=== PATIENT | female | born 1975 | race Caucasian/White ===

== ENCOUNTER 2020-09-26 14:49 | Outpatient (CLI) | payer OTHER, SELFPAY ==
[2020-09-26 16:30] LABS: SARS-CoV-2 RNA PCR Positive (Negative)
== END 2020-09-26 14:50 | disposition home or self-care (01) ==
LOC: CHSLAB 14:51
PROVIDERS: PCP Internal Medicine; Visit Provider Internal Medicine
DX: U07.1 COVID-19 (principal)
CPT/HCPCS: C9803; U0003; U0005

== ENCOUNTER 2020-09-27 09:04 | Outpatient (CLI) | payer OTHER, SELFPAY ==
[2020-09-27 09:43] LABS: Appearance Urine Clear (Clear); Basophils Absolute Auto 0.03 K/mm3 (0.00-0.10); Basophils Percent Auto 0.4 % (0.0-1.0); Bilirubin Urine Negative (Negative); Color Urine Yellow (Yellow); Eosinophils Absolute Auto 0.08 K/mm3 (0.02-0.50); Eosinophils Percent Auto 1.2 % (1.0-6.0); Glucose Urine UA Negative (Negative); Hematocrit 41.1 % (35.0-49.0); Hemoglobin 13.5 g/dL (12.0-15.0); Immature Granulocyte Absolute 0.01 K/mm3 (0.00-0.00); Immature Granulocyte Percent A 0.1 % (0.0-0.0); Ketones Urine Negative (Negative); Leukocyte Esterase Ur Negative LEU/UL (Negative); Lymphocytes Absolute Auto 2.82 K/mm3 (1.10-4.50); Lymphocytes Percent Auto 41.8 % (18.0-42.0); Mean Corpuscular HGB Conc 32.8 g/dL (32.0-36.0); Mean Corpuscular Hemoglobin 32.3 pg (27.0-31.0); Mean Corpuscular Volume 98.3 fL (78.0-102.0); Mean Platelet Volume 9.4 fl (9.2-11.8); Monocytes Absolute Auto 0.31 K/mm3 (0.10-0.90); Monocytes Percent Auto 4.6 % (2.0-11.0); Neutrophils Absolute Auto 3.5 K/mm3 (1.7-7.2); Neutrophils Percent Auto 51.9 % (50.0-70.0); Nitrate Urine Negative (Negative); Platelet Count Result 355 K/mm3 (150-420); Protein Urine Negative (Negative); Red Blood Count 4.18 M/mm3 (4.20-5.40); Red Cell Distribution Width 11.8 % (11.6-14.4); Specific Grav Ur <= 1.005 (1.010-1.020); Urobilinogen Urine 0.2 mg/dL (0.2-1.0); White Blood Count 6.7 K/mm3 (4.8-10.8); pH Urine 5.5 (5.0-8.0)
[2020-09-27 09:53] LABS: Add Urine Microscopic? YES; Blood Urine Trace-Intact (Negative); RBC Urine 0-2 /hpf (0-2); WBC Urine None seen /hpf (0-3)
[2020-09-27 09:54] LABS: Bacteria Urine Trace /hpf; Squamous Epithelial Cell Urine Rare /hpf (Few)
[2020-09-27 10:36] LABS: Alanine Aminotransferase 29 U/L (14-59); Albumin Level 4.1 g/dL (3.4-5.0); Alkaline Phosphatase 65 U/L (46-116); Anion Gap 9 mmol/L (8-16); Aspartate Amino Transferase 19 U/L (15-37); Bilirubin,Total 0.3 mg/dL (0.00-1.00); Blood Urea Nitrogen 12 mg/dL (7-18); Calcium 9.7 mg/dL (8.5-10.1); Carbon Dioxide 28 mmol/L (21-32); Chloride 102 mmol/L (98-108); Estimated Glomerular Filt Rate > 60; Glucose 82 mg/dL (70-99); Osmolality Calculated 286 mOsm/kg (285-295); Potassium 4.1 mmol/L (3.5-5.1); Sodium 139 mmol/L (136-145); Thyroid Stimulating Hormone 1.11 uIU/mL (0.36-3.74); Total Protein 7.7 g/dL (6.4-8.2)
== END 2020-09-27 09:05 | disposition home or self-care (01) ==
PROVIDERS: PCP Internal Medicine; Visit Provider Internal Medicine
DX: Z86.16 Personal history of COVID-19 (principal)
CPT/HCPCS: 36415; 80053; 81001; 84443; 85025; 86769

== ENCOUNTER 2020-10-03 08:11 | Outpatient (CLI) | payer OTHER, SELFPAY ==
[2020-10-03 09:42] LABS: SARS-CoV-2 RNA PCR Negative (Negative)
== END 2020-10-03 08:12 | disposition home or self-care (01) ==
LOC: CHSLAB 08:14
PROVIDERS: PCP Internal Medicine; Visit Provider Internal Medicine
DX: Z20.822 Contact with and (suspected) exposure to COVID-19 (principal)
CPT/HCPCS: C9803; U0003; U0005

== ENCOUNTER 2020-10-14 08:44 | Outpatient (CLI) | payer OTHER, SELFPAY ==
[2020-10-14 09:02] LABS: Appearance Urine Clear (Clear); Bilirubin Urine Negative (Negative); Blood Urine 2+ (Negative); Glucose Urine UA Negative (Negative); Ketones Urine Trace (Negative); Leukocyte Esterase Ur Negative (Negative); Nitrate Urine Negative (Negative); Protein Urine Negative (Negative); Specific Grav Ur >= 1.030 (1.010-1.020); Urobilinogen Urine 0.2 mg/dL (0.2-1.0)
[2020-10-14 09:14] LABS: Basophils Absolute Auto 0.02 K/mm3 (0.00-0.10); Basophils Percent Auto 0.4 % (0.0-1.0); Eosinophils Percent Auto 1.9 % (1.0-6.0); Hematocrit 37.6 % (35.0-49.0); Hemoglobin 12.4 g/dL (12.0-15.0); Immature Granulocyte Absolute 0.02 K/mm3 (0.00-0.00); Immature Granulocyte Percent A 0.4 % (0.0-0.0); Lymphocytes Absolute Auto 1.85 K/mm3 (1.10-4.50); Lymphocytes Percent Auto 35.9 % (18.0-42.0); Mean Corpuscular Hemoglobin 32.1 pg (27.0-31.0); Mean Corpuscular Volume 97.4 fL (78.0-102.0); Mean Platelet Volume 9.7 fl (9.2-11.8); Monocytes Absolute Auto 0.27 K/mm3 (0.10-0.90); Monocytes Percent Auto 5.2 % (2.0-11.0); Neutrophils Absolute Auto 2.9 K/mm3 (1.7-7.2); Neutrophils Percent Auto 56.2 % (50.0-70.0); Platelet Count Result 323 K/mm3 (150-420); Red Blood Count 3.86 M/mm3 (4.20-5.40); White Blood Count 5.2 K/mm3 (4.8-10.8)
[2020-10-14 09:17] LABS: Add Urine Microscopic? YES; Color Urine Light Yellow (Yellow); RBC Urine 0-2 /hpf (0-2)
[2020-10-14 09:18] LABS: Bacteria Urine Trace /hpf; Squamous Epithelial Cell Urine Few /hpf (Few); WBC Urine None seen /hpf (0-3)
[2020-10-14 10:00] LABS: Alanine Aminotransferase 32 U/L (14-59); Albumin Level 4.2 g/dL (3.4-5.0); Alkaline Phosphatase 60 U/L (46-116); Anion Gap 11 mmol/L (8-16); Aspartate Amino Transferase 16 U/L (15-37); Bilirubin,Total 0.6 mg/dL (0.00-1.00); Blood Urea Nitrogen 11 mg/dL (7-18); Calcium 9.6 mg/dL (8.5-10.1); Carbon Dioxide 26 mmol/L (21-32); Chloride 103 mmol/L (98-108); Cholesterol 202 mg/dL (0-200); Estimated Glomerular Filt Rate > 60; Glucose 96 mg/dL (70-99); HDL Direct 56 mg/dL (40-60); LDL Cholesterol Calculated 127 mg/dL (<130); Osmolality Calculated 289 mOsm/kg (285-295); Potassium 4.1 mmol/L (3.5-5.1); Sodium 140 mmol/L (136-145); Thyroid Stimulating Hormone 1.02 uIU/mL (0.36-3.74); Total Protein 7.4 g/dL (6.4-8.2); Triglycerides 96 mg/dL (0-150)
== END 2020-10-14 08:45 | disposition home or self-care (01) ==
PROVIDERS: PCP Internal Medicine; Visit Provider Internal Medicine
DX: Z00.00 Encounter for general adult medical examination without abnormal findings (principal)
CPT/HCPCS: 36415; 80053; 80061; 81001; 84443; 85025

== ENCOUNTER 2020-11-21 14:31 | Outpatient (CLI) | payer OTHER, SELFPAY ==
--- NOTE | ~2020-11-21 | US_ITS ---
EXAMINATION: US thyroid DATE: 11/21/2020 14:56 INDICATION: Thyroid nodule TECHNIQUE: Multiple ultrasound images of the thyroid were obtained. COMPARISON: 02/29/2012 FINDINGS: The right thyroid lobe measures 4.1 x 0.9 x 1.3 cm. The left thyroid lobe measures 4.5 x 1.0 x 1.4 c m. No significant interval change in a 4 mm wide than tall solid hypoechoic nodule with smooth margin s in the superior left thyroid (TI-RADS 4, moderately suspicious , FNA if >=1.5 cm, annual followup i s >=1 cm). No significant change in a second 1.2 cm wider than tall solid isoechoic nodule with mary h margins (TI-RADS 3, mildly suspicious , FNA if >=2.5 cm, annual followup is >=1.5 cm) in the infer ior left thyroid lobe. There is normal echotexture, echogenicity and vascular flow throughout the rem ainder of the thyroid gland. IMPRESSION: 1. No interval change since 2011 in a couple likely benign small left thyroid nodules which remain be low threshold for recommendation of either biopsy or follow-up. Reviewed, dictated and finalized at location A. IMPRESSION: 1. No interval change since 2011 in a couple likely benign small left thyroid n odules which remain below threshold for recommendation of either biopsy or fol low-up.
== END 2020-11-21 14:32 | disposition home or self-care (01) ==
PROVIDERS: PCP Internal Medicine; Visit Provider Internal Medicine
DX: E04.1 Nontoxic single thyroid nodule (principal)
CPT/HCPCS: 76536

== ENCOUNTER 2021-04-17 09:11 | Outpatient (CLI) | payer OTHER, SELFPAY ==
--- NOTE | ~2021-04-17 | XR_ITS ---
EXAMINATION: XR chest 2V DATE: 04/17/2021 09:40 INDICATION: Cough, URI symptoms TECHNIQUE: PA and lateral views of the chest are obtained. COMPARISON: 10/02/2008 FINDINGS: The lungs are free of acute opacities. There is no pleural effusion or pneumothorax. The ca rdiomediastinal silhouette is normal. There is moderate thoracic spondylosis. IMPRESSION: 1. No acute cardiopulmonary abnormality. Reviewed, dictated and finalized at location A. S ACCOUNT LEADER
[2021-04-17 09:24] LABS: Basophils Absolute Auto 0.03 K/mm3 (0.00-0.10); Basophils Percent Auto 0.4 % (0.0-1.0); Eosinophils Absolute Auto 0.23 K/mm3 (0.02-0.50); Eosinophils Percent Auto 3.1 % (1.0-6.0); Hematocrit 40.4 % (35.0-49.0); Hemoglobin 13.4 g/dL (12.0-15.0); Immature Granulocyte Absolute 0.02 K/mm3 (0.00-0.00); Immature Granulocyte Percent A 0.3 % (0.0-0.0); Lymphocytes Absolute Auto 2.13 K/mm3 (1.10-4.50); Mean Corpuscular HGB Conc 33.2 g/dL (32.0-36.0); Mean Corpuscular Hemoglobin 33.2 pg (27.0-31.0); Mean Platelet Volume 9.1 fl (9.2-11.8); Monocytes Absolute Auto 0.52 K/mm3 (0.10-0.90); Monocytes Percent Auto 7.1 % (2.0-11.0); Neutrophils Absolute Auto 4.4 K/mm3 (1.7-7.2); Neutrophils Percent Auto 60.1 % (50.0-70.0); Platelet Count Result 407 K/mm3 (150-420); Red Blood Count 4.04 M/mm3 (4.20-5.40); White Blood Count 7.4 K/mm3 (4.8-10.8)
[2021-04-17 10:22] LABS: Alanine Aminotransferase 27 U/L (14-59); Alkaline Phosphatase 68 U/L (46-116); Anion Gap 11 mmol/L (8-16); Aspartate Amino Transferase 18 U/L (15-37); Bilirubin,Total 0.4 mg/dL (0.00-1.00); Blood Urea Nitrogen 10 mg/dL (7-18); Calcium 9.5 mg/dL (8.5-10.1); Carbon Dioxide 27 mmol/L (21-32); Chloride 103 mmol/L (98-108); Estimated Glomerular Filt Rate > 60; Glucose 78 mg/dL (70-99); Osmolality Calculated 290 mOsm/kg (285-295); Potassium 4.3 mmol/L (3.5-5.1); Sodium 141 mmol/L (136-145); Total Protein 7.6 g/dL (6.4-8.2)
[2021-04-17 15:50] LABS: SARS-CoV-2 RNA PCR Negative (Negative)
== END 2021-04-17 09:12 | disposition home or self-care (01) ==
PROVIDERS: PCP Internal Medicine; Visit Provider Internal Medicine
DX: Z20.822 Contact with and (suspected) exposure to COVID-19 (principal); R05.9 Cough, unspecified; J06.9 Acute upper respiratory infection, unspecified
CPT/HCPCS: 36415; 71046; 80053; 85025; C9803; U0003; U0005

== ENCOUNTER → 2021-05-12 15:29 | Outpatient (CLI) | payer OTHER, SELFPAY ==
--- NOTE | ~2021-05-12 | CT_ITS ---
EXAMINATION: CT sinus wo con DATE: 05/12/2021 16:14 INDICATION: Recurrent sinus infections TECHNIQUE: Computed tomography (CT) of the paranasal sinuses was performed without intravenous contra st. The dose-length product (DLP) was 258.77 mGy-cm. Iterative reconstruction was used. COMPARISON: None FINDINGS: There is normal development and pneumatization of the paranasal sinuses. The frontal, sphen oid, ethmoid, and maxillary sinuses are clear. The bilateral ostiomeatal complexes are patent. Visual ized soft tissues are unremarkable. There are 6 mm of leftward deviation of the nasal septum. IMPRESSION: 1. No significant sinus disease. Leftward deviation of the nasal septum. Reviewed, dictated and finalized at location F. SHAPER TOP
== END ==
PROVIDERS: PCP Internal Medicine; Visit Provider Allergy & Immunology
DX: J32.9 Chronic sinusitis, unspecified (principal); J34.2 Deviated nasal septum
CPT/HCPCS: 70486

== ENCOUNTER → 2022-02-26 13:23 | Outpatient (CLI) | payer OTHER, SELFPAY ==
--- NOTE | ~2022-02-26 | MR_ITS ---
EXAMINATION: MR brain/brain stem wo con DATE: 02/26/2022 14:11 INDICATION: Worsening headache. Dizziness. TECHNIQUE: Magnetic resonance imaging (MRI) of the brain and brainstem was performed without intraven ous contrast. COMPARISON: None. FINDINGS: There is no intracranial hemorrhage, acute infarction, or abnormal intracranial mass lesion . The ventricles are normal in size. The paranasal sinuses are clear. The orbits are normal. The mast oid air cells are normal. IMPRESSION: 1. Normal brain. Reviewed, dictated and finalized at location A. IMPRESSION: 1. Normal brain.
== END ==
PROVIDERS: PCP Internal Medicine; Visit Provider Internal Medicine
DX: R42 Dizziness and giddiness (principal); G44.52 New daily persistent headache (NDPH)
CPT/HCPCS: 70551

== ENCOUNTER 2023-02-08 10:19 | Outpatient (CLI) | payer OTHER, SELFPAY ==
--- NOTE | ~2023-02-08 | XR_ITS ---
Thoracic spine: Clinical Indication: Back pain AP and lateral views were performed. Probable mild anterior wedging deformity of T7. No subluxation evident. Intervertebral disc spaces ar e well preserved. Paravertebral soft tissues appear normal. Impression: Probable mild anterior wedging deformity of T7. Reviewed, dictated and finalized at location . Impression: Probable mild anterior wedging deformity of T7.
--- NOTE | ~2023-02-08 | XR_ITS ---
Cervical Spine: AP, lateral, open-mouth views Clinical History: Pain Findings: The normal lordotic curve is maintained. The vertebral bodies and posterior elements appea r intact. The intervertebral disc spaces are well maintained. Pre-vertebral soft tissues are unremar kable. Impression: No significant abnormality is seen. Reviewed, dictated and finalized at [facility]. Impression: No significant abnormality is seen.
== END 2023-02-08 10:20 | disposition home or self-care (01) ==
LOC: CHSIMG 10:23
PROVIDERS: PCP Internal Medicine; Visit Provider Internal Medicine
DX: Z00.00 Encounter for general adult medical examination without abnormal findings (principal); M54.2 Cervicalgia
CPT/HCPCS: 72040; 72072

== ENCOUNTER → 2023-03-05 13:20 | Outpatient (CLI) | payer OTHER, SELFPAY ==
--- NOTE | ~2023-03-05 | MR_ITS ---
EXAMINATION: MR thoracic spine wo con DATE: 03/05/2023 14:00 INDICATION: Back pain. TECHNIQUE: Magnetic resonance imaging (MRI) of the thoracic spine was performed without intravenous c ontrast. COMPARISON: Thoracic spine radiographs 02/08/23 FINDINGS: There is 10 degrees levoscoliosis of thoracic spine. There is kyphosis of thoracic spine. T here is mild chronic anterior wedging of T6-T9 vertebral bodies. There is mildly decreased disc heigh t at T8-T9 and T9-T10. There is multilevel mild facet joint osteoarthritis. At T7-T8, there is mild b ilateral neural foraminal stenosis. There are central protrusions at T5-T6, T6-T7, T7-T8, T8-T9, T9-T 10, T10-T11, and T11-T12 with mild central canal stenosis. The spinal cord signal intensity is normal . The conus medullaris is at T12. IMPRESSION: 1. Mild thoracic spondylosis. 2. Thoracic kyphosis and levoscoliosis. Reviewed, dictated and finalized at location E.
== END ==
PROVIDERS: PCP Internal Medicine; Visit Provider Internal Medicine
DX: M54.50 Low back pain, unspecified (principal); M47.894 Other spondylosis, thoracic region
CPT/HCPCS: 72146

== ENCOUNTER 2023-03-09 07:38 | Outpatient (CLI) | payer OTHER, SELFPAY ==
[2023-03-09 08:00] LABS: Appearance Urine Clear (Clear); Basophils Absolute Auto 0.03 K/mm3 (0.00-0.10); Basophils Percent Auto 0.6 % (0.0-1.0); Bilirubin Urine Negative (Negative); Color Urine Light Yellow (Yellow); Eosinophils Absolute Auto 0.09 K/mm3 (0.02-0.50); Eosinophils Percent Auto 1.7 % (1.0-6.0); Glucose Urine UA Negative (Negative); Hematocrit 38.6 % (35.0-49.0); Hemoglobin 12.5 g/dL (12.0-15.0); Immature Granulocyte Absolute 0.01 K/mm3 (0.00-0.00); Immature Granulocyte Percent A 0.2 % (0.0-0.0); Ketones Urine 1+ (Negative); Leukocyte Esterase Ur Negative (Negative); Lymphocytes Percent Auto 35.9 % (18.0-42.0); Mean Corpuscular HGB Conc 32.4 g/dL (32.0-36.0); Mean Corpuscular Hemoglobin 31.9 pg (27.0-31.0); Mean Corpuscular Volume 98.5 fL (78.0-102.0); Mean Platelet Volume 9.4 fl (9.2-11.8); Monocytes Absolute Auto 0.31 K/mm3 (0.10-0.90); Monocytes Percent Auto 5.9 % (2.0-11.0); Neutrophils Percent Auto 55.7 % (50.0-70.0); Nitrate Urine Negative (Negative); Platelet Count Result 346 K/mm3 (150-420); Protein Urine Negative (Negative); Red Blood Count 3.92 M/mm3 (4.20-5.40); Red Cell Distribution Width 11.8 % (11.6-14.4); White Blood Count 5.3 K/mm3 (4.8-10.8); pH Urine 7.5 (5.0-8.0)
[2023-03-09 08:06] LABS: Add Urine Microscopic? YES; Bacteria Urine 1+ /hpf; RBC Urine 0-2 /hpf (0-2); Squamous Epithelial Cell Urine Moderate /hpf (Few); WBC Urine None seen /hpf (0-3)
[2023-03-09 08:07] LABS: Blood Urine 1+ (Negative)
[2023-03-09 08:24] LABS: Alanine Aminotransferase 26 U/L (14-59); Albumin Level 3.8 g/dL (3.4-5.0); Alkaline Phosphatase 64 U/L (46-116); Anion Gap 10 mmol/L (8-16); Aspartate Amino Transferase 16 U/L (15-37); Bilirubin,Total 0.5 mg/dL (0.00-1.00); Blood Urea Nitrogen 11 mg/dL (7-18); Calcium 9.3 mg/dL (8.5-10.1); Carbon Dioxide 27 mmol/L (21-32); Chloride 105 mmol/L (98-108); Cholesterol 183 mg/dL (0-200); Estimated Glomerular Filt Rate > 60; Glucose 97 mg/dL (70-99); HDL Direct 54 mg/dL (40-60); LDL Cholesterol Calculated 116 mg/dL (<130); Osmolality Calculated 293 mOsm/kg (285-295); Potassium 3.9 mmol/L (3.5-5.1); Sodium 142 mmol/L (136-145); Thyroid Stimulating Hormone 1.18 uIU/mL (0.36-3.74); Total Protein 6.7 g/dL (6.4-8.2); Triglycerides 63 mg/dL (0-150)
== END 2023-03-09 07:39 | disposition home or self-care (01) ==
LOC: CHSLAB 07:39
PROVIDERS: PCP Internal Medicine; Visit Provider Internal Medicine
DX: M54.2 Cervicalgia (principal); M54.6 Pain in thoracic spine
CPT/HCPCS: 36415; 80053; 80061; 81001; 84443; 85025

== ENCOUNTER 2023-03-27 11:00 | Outpatient (CLI) | payer OTHER, SELFPAY ==
--- NOTE | ~2023-03-27 | DEXA_ITS ---
Bone Density Report Name: JAMISON GALEANO Age: 48 Sex: Female Ethnicity: White Date of : 1975 Indication: postmenopausal; screening for osteoporosis; Referring Provider: Jason Hilton Study: Bone densitometry was performed. Exam Date: March 27, 2023 Accession number: [id number] Bone Density: Region BMD T-score Z-score Classification AP Spine(L1-L4) 0.854 -1.8 -1.0 Osteopenia Femoral Neck (Left) 0.736 -1.0 -0.3 Normal Total Hip (Left) 0.970 0.2 0.7 Normal Femoral Neck (Right) 0.748 -0.9 -0.2 Normal Total Hip (Right) 0.990 0.4 0.9 Normal Femoral Neck Mean 0.742 -1.0 -0.2 Normal Total Hip Mean 0.980 0.3 0.8 Normal World Health Organization criteria for BMD impression classify patients as: Normal (T-score at or above -1.0), Osteopenia (T-score between -1.0 and -2.5), or Osteoporosis (T-score at or below -2.5). 10-year Fracture Risk(1): Major Osteoporotic Fracture 3.9% Hip Fracture 0.2% Reported Risk Factors: [place] (), Neck BMD=0.736, BMI=28.8 (1) FRAX(R) Version 3.08. Fracture probability calculated for an untreated patient. Fracture probability may be lower if the patient has received treatment. Clinical Information Provided by Patient: Patient maximum height was 64 Menopause Age: 46 No regular weight bearing exercise Does not regularly consume dairy products Drinks caffeinated beverages Onset of menses at age 14 Number of children 2 Impression: The patient has low bone mass, based on the Total Spine T-score. Discussion: BONE DENSITY IS LOW AT ONE OR MORE SKELETAL SITES. This patient's lowest T-score is low at one or more skeletal sites. It meets the World Health Organization's (WHO) criteria for ?low bone mass? (T-score between -1.0 and -2.5). The patient's 10-year risk of fracture as calculated by FRAX is less than the threshold where pharmacological therapy is recommended by the National Osteoporosis Foundation (NOF). However, all treatment decisions require clinical judgment and consideration of individual patient factors, including patient preferences, comorbidities, previous drug use, risk factors not captured in the FRAX model (e.g., frailty, falls, vitamin D deficiency, increased bone turnover, interval significant decline in bone density) and possible under or overestimation of fracture risk by FRAX. The patient should follow a healthful lifestyle (good nutrition with adequate calcium and vitamin D, and appropriate weight-bearing exercise). Follow-Up: Consider repeating this study in 2 to 3 years to reassess this patient's status, or sooner if there is some new clinical indication. Reported by: Dr. Mathew Villanueva on 03/27/2023 11:25:00 AM. Reviewed, dictated and finalized at location A.
== END 2023-03-27 11:01 | disposition home or self-care (01) ==
LOC: CHSIMG 11:01
PROVIDERS: PCP Internal Medicine; Visit Provider Internal Medicine
DX: M85.88 Other specified disorders of bone density and structure, other site (principal)
CPT/HCPCS: 77080

== ENCOUNTER 2023-04-08 14:54 | Outpatient (CLI) | payer OTHER, SELFPAY ==
--- NOTE | 2023-04-08 15:00 | ECHO_ITS ---
Patient Info Name: Smita Long Age: 48 years : 1975 Gender: Female Ht: 64 in Wt: 165 lbs BSA: 1.86 m2 HR: 68 bpm BP: 160 / 101 mmHg Heart Rhythm: Sinus Rhythm Technical Quality: Good Exam Date: 04/08/2023 3:52 PM Exam Location: Echo Lab Patient Status: Outpatient Admit Date: 04/08/2023 Staff Ordering Physician: Jason Hilton MD Mixing House Operator: Sampson Montoya RDCS Attending Provider: Jason Hilton MD Exam Type: CA echo doppler color flow Study Info Indications - HTN, ABN EKG Complete two-dimensional, color flow and Doppler transthoracic echocardiogram is performed. Summary 1. Complete two-dimensional, color flow and Doppler transthoracic echocardiogram is performed. 2. Left ventricular chamber dimension is normal. 3. Left ventricular systolic function is normal, estimated at 60-65%. 4. The left ventricular diastolic function is normal. 5. E/e' 8 is minimally elevated. 6. There is mild mitral valve regurgitation. 7. There is trace tricuspid valve regurgitation. 8. No pulmonary hypertension, estimated pulmonary arterial systolic pressure is 13 mmHg. Left Ventricle E/e' 8 is minimally elevated. Left ventricular chamber dimension is normal. Left ventricular systolic function is normal, estimated at 60-65%. The left ventricular diastolic function is normal. Right Ventricle Right ventricular chamber dimension is normal. Right ventricular systolic function is normal. Left Atria Left atrial chamber dimension is normal. Right Atria Right atrial chamber dimension is normal. Aortic Valve The aortic valve is trileaflet. There is no aortic valve stenosis. There is no aortic valve regurgitation. Pulmonic Valve There is no pulmonic regurgitation. Mitral Valve There is no mitral valve stenosis. There is mild mitral valve regurgitation. Tricuspid Valve There is trace tricuspid valve regurgitation. No pulmonary hypertension, estimated pulmonary arterial systolic pressure is 13 mmHg. Pericardium/Pleural There is no pericardial effusion. Inferior Vena Cava Normal inferior vena cava with >50% collapse upon inspiration consistent with normal right atrial pressure, 5 mmHg. Aorta The aortic root size at the sinus of Valsalva is normal. Left Ventricular Outflow Tract Name Value Normal LVOT 2D LVOT Diameter 2.0 cm LVOT Doppler LVOT Peak Velocity 104 cm/s LVOT Peak Gradient 4 mmHg LVOT Mean Gradient 2 mmHg LVOT VTI 25 cm LVOT VTI/AV VTI Ratio 0.6 LVOT Stroke Volume 84 ml Pulmonic Valve Name Value Normal PV Doppler PV Peak Velocity 84 cm/s PV Peak Gradient 3 mmHg Mitral Valve Name Value Normal
== END 2023-04-08 14:55 | disposition home or self-care (01) ==
LOC: CHSIMG 14:56
PROVIDERS: PCP Internal Medicine; Visit Provider Internal Medicine
DX: I10 Essential (primary) hypertension (principal); R94.31 Abnormal electrocardiogram [ECG] [EKG]; I34.0 Nonrheumatic mitral (valve) insufficiency
CPT/HCPCS: 93306

== ENCOUNTER 2023-06-01 11:29 | Outpatient (CLI) | payer OTHER, SELFPAY ==
[2023-06-01 12:13] LABS: Alanine Aminotransferase 29 U/L (14-59); Albumin Level 3.8 g/dL (3.4-5.0); Alkaline Phosphatase 64 U/L (46-116); Anion Gap 9 mmol/L (8-16); Aspartate Amino Transferase 26 U/L (15-37); Bilirubin,Total 0.4 mg/dL (0.00-1.00); Blood Urea Nitrogen 14 mg/dL (7-18); Calcium 9.4 mg/dL (8.5-10.1); Carbon Dioxide 29 mmol/L (21-32); Chloride 103 mmol/L (98-108); Estimated Glomerular Filt Rate > 60; Glucose 90 mg/dL (70-99); Osmolality Calculated 292 mOsm/kg (285-295); Sodium 141 mmol/L (136-145)
== END 2023-06-01 11:30 | disposition home or self-care (01) ==
PROVIDERS: PCP Internal Medicine; Visit Provider Internal Medicine
DX: R03.0 Elevated blood-pressure reading, without diagnosis of hypertension (principal); E61.2 Magnesium deficiency
CPT/HCPCS: 36415; 80053; 83735

== ENCOUNTER 2024-06-09 16:47 | Outpatient (CLI) | payer BC, SELFPAY ==
--- OUTSIDE RECORDS SUMMARY | 2024-06-09 16:57 | XMS_ITS | Clinical Summary ---
Author Organization [facility] Address [address] [place] [address] Care Team Providers Care Head Loader Name Role Phone Jason Hilton MD Primary Care Provider [phone] Source Comments [facility],non-owned Affiliates and Associated Physician Practices is amultiple site organization consisting of ambulatory clinics and hospital sitesin [place], [place], [place] and [place]. This disclosure is being madepursuant to the Care Everywhere program and may not contain all information available regarding this patient. Last updated 18.[facility] Allergies Active Allergy Reactions Criticality Noted Date Comments Sulfa Drugs Itching,Nausea and/or Vomiting 10/2012 Azithromycin Nausea and/or Vomiting 06/11/2012 Medications * Be aware that medications may not be up to date on this document. Alwaysverify current medications with the patient. Medication Sig Dispensed Refills Start Date End Date Status norethindrone-ethiny l estradiol (LOESTRIN 1.5, ,) 1.5-30 MG-MCG tablet Take 1 Tab by mouth once daily. Active montelukast (SINGULAIR) 10 MG tablet Take 10 mg by mouth at bedtime. Active escitalopram (LEXAPRO) 5 MG tablet Take 5 mg by mouth once daily Active HYDROXYZINE HCL PO Active boric acid 600 mg capsule Insert 1 capsule into the vagina at bedtime 30 capsule 06/03/2018 Active hydrOXYzine hcl (ATARAX) 10 MG tablet Take 1 tablet by mouth at bedtime Please make an appt for future refills 90 tablet 06/30/2019 Active Active Problems Problem Noted Date Diagnosed Date Interstitial cystitis 06/03/2018 Family History Medical History Relation Name Comments Hypertension Father Colon Cancer after age 50 or unknown Maternal Grandmot her Hypertension Mother Cancer - Pancreatic Paternal Grandfather Relation Name Status Comments Father Maternal Grandmother Mother Paternal Grandfather Social History Tobacco Use Types Packs/Day Years Used Date Smoking Tobacco: Never Smokeless Tobacco: Never Alcohol Use Standard Drinks/Week Comments No 0 (1 standard drink = 0.6 oz pur e alcohol) Sex and Gender Information Value Date Recorded Sex Assigned at Not on file Gender Identity Not on file Sexual Orientation Not on file Last Filed Vital Signs Vital Sign Reading Time Taken Comments Blood Pressure 112/70 06/03/2018 12:45 PM MACHINE ETCHER Pulse 94 06/29/2017 3:39 PM MACHINE ETCHER Temperature 37 ??C (98.6 ??F) 06/29/2017 3:39 PM MACHINE ETCHER Respiratory Rate 16 06/29/2017 3:39 PM MACHINE ETCHER Oxygen Saturation 97% 06/29/2017 3:39 PM MACHINE ETCHER Inhaled Oxygen Concentration - - Weight 67.1 kg (148 lb) 06/03/2018 12:45 PM MACHINE ETCHER Height 162.6 cm (5' 4 ) 06/03/2018 12:45 PM MACHINE ETCHER Body Mass Index 25.4 06/03/2018 12:45 PM MACHINE ETCHER Plan of Treatment Health Maintenance Due Date Last Done Comments COLOGUARD (AGES 45-75) - COL ON CA SCREENING 1975 CT COLONOGRAPHY - COLON CA SCREENING 1975 FIT - COLON CA SCREENING 1975 FLEX SIG - COLON CA SCREENING 1975 LIPID TESTING 1975 MAMMOGRAM 1975 PAP SMEAR 1975 HIV SCREENING 02/29/1988 HEPATITIS C SCREENING 02/24/1991 DTAP/TDAP/TD VACCINES (1 - Tdap) 02/29/1992 HEPATITIS B VACCINE (1 of 3 - 19+ 3-dose series) 02/29/1992 SCREENING FOR DIABETES 06/29/2017 PNEUMOCOCCAL VACCINE 50+ (1 of 1 - PCV) 2023 ZOSTER VACCINE (1 of 2) 2023 COVID-19 VACCINE (1 - 2023-2 5 season) 2024 INFLUENZA VACCINE (#1) 2024 DEPRESSION SCREENING 05/06/2024 COLON MONITORING 07/26/2024 07/26/2014, 07/26/2014 COLONOSCOPY - COLON CA SCREENING 07/26/2024 07/26/2014, 07/26/2014 Colorectal Cancer Screening 07/26/2024 HIB VACCINE Aged Out No longer eligi ble based on patient's age to complete this topic HPV VACCINE Aged Out No longer eligi ble based on patient's age to complete this topic MENINGOCOCCAL (Group B) VACCINE Aged Out No longer eligible b ased on patient's age to complete this topic MENINGOCOCCAL VACCINE Aged Out No jen nathalia eligible based on patient's age to complete this topic PNEUMOCOCCAL VACCINE Aged Out No long er eligible based on patient's age to complete this topic Procedures Procedure Name Priority Date/Time Associated Diagnosis Comments ENDOSCOPY, COLON, SCREENING Routine 07/26/2014 7:37 AM CDT from Last 3 Months or Most Recently Relevant to Health Maintenance Results * ENDOSCOPY, COLON, SCREENING (07/26/2014 7:37 AM CDT) Report Endoscopy POC _ Patient Name: Smita Valente ?Procedure Date: 07/26/2014 7:37 AM ? Date of : 1975 ? Admit Type: Outpatient Age: 39 ? Gender: Female Attending MD: Yolanda Chu MD ? _ Procedure: ? Colonoscopy Indications: ? Colon cancer screening in patient at increased risk: ? Second degree relative with colon cancer, mother with ? colon polyps Providers: ? Yolanda Chu MD (Doctor), Makenzie Green ? NANETTE oRdriguez Referring MD: ?Jason Hilton MD (Referring MD) Medicines: ? Monitored Anesthesia Care Complications: ? No immediate complications. _ Procedure: ? Pre-Anesthesia Assessment: ? - Prior to the procedure, a History and Physical was ? performed, and patient medications, allergies and ? sensitivities were reviewed. The patient's tolerance of ? previous anesthesia was reviewed. ? - The risks and benefits of the procedure and the sedation ? options and risks were discussed with the patient. All ? questions were answered and informed consent was obtained. ? After I obtained informed consent, the scope was passed ? under direct vision. Throughout the procedure, the ? patient's blood pressure, pulse, and oxygen saturations ? were monitored continuously. The Colonoscope was ? introduced through the anus and advanced to the cecum, ? identified by appendiceal orifice and ileocecal valve. The ? colonoscopy was performed without difficulty. The patient ? tolerated the procedure well. The quality of the bowel ? preparation was good. ? Impression: ?- Non-thrombosed external hemorrhoids found on perianal ? exam. ? - External hemorrhoids. ? - The examination was otherwise normal. Findings: ? The perianal exam findings include small non-thrombosed external ? hemorrhoids. ? External hemorrhoids were found during retroflexion and were small. ? The exam was otherwise without abnormality. ? No additional abnormalities were found on retroflexion. _ Recommendation: ?- Discharge patient to home. ? - Repeat colonoscopy in 10 years for surveillance. ? Procedure Code(s): ? --- Professional --- ? G0105, Colorectal cancer screening; colonoscopy on individual at high ? risk ? --- Technical --- ? G0105, Colorectal cancer screening; colonoscopy on individual at high ? risk Diagnosis Code(s): ? --- Professional --- ? V18.51, Family history of colonic polyps ? 455.3, External hemorrhoids without mention of complication ? --- Technical --- ? V18.51, Family history of colonic polyps ? 455.3, External hemorrhoids without mention of complication CPT copyright 2013 [employer]. All rights reserved. The codes documented in this report are preliminary and upon tour narrator review may be revised to meet current compliance requirements. ___ Yolanda Chu MD 07/26/2014 8:28 AM This report has been signed electronically. 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
--- OUTSIDE RECORDS SUMMARY | 2024-06-09 16:57 | XMS_ITS | Referral Summary ---
Author Organization [facility] Address [address] [place] [address] Care Team Providers Care Oiler Helper Name Role Phone Jason Hilton MD Primary Care Provider [phone] Source Comments [facility],non-owned Affiliates and Associated Physician Practices is amultiple site organization consisting of ambulatory clinics and hospital sitesin [place], [place], [place] and [place]. This disclosure is being madepursuant to the Care Everywhere program and may not contain all information available regarding this patient. Last updated 18.[facility] Allergies Active Allergy Reactions Criticality Noted Date Comments Sulfa Drugs Itching,Nausea and/or Vomiting 10/2012 Azithromycin Nausea and/or Vomiting 06/11/2012 Medications * Be aware that medications may not be up to date on this document. Alwaysverify current medications with the patient. Medication Sig Dispensed Refills Start Date End Date Status norethindrone-ethiny l estradiol (LOESTRIN 1.5/, ,) 1.5-30 MG-MCG tablet Take 1 Tab [...] Noted Date Diagnosed Date Interstitial cystitis 06/03/2018 Social History Tobacco Use Types Packs/Day Years [...] Comments Blood Pressure 112/70 06/03/2018 12:45 PM REGISTERED NURSE FETAL Pulse 94 06/29/2017 3:39 PM REGISTERED NURSE FETAL Temperature 37 ??C (98.6 ??F) 06/29/2017 3:39 PM REGISTERED NURSE FETAL Respiratory Rate 16 06/29/2017 3:39 PM REGISTERED NURSE FETAL Oxygen Saturation 97% 06/29/2017 3:39 PM REGISTERED NURSE FETAL Inhaled Oxygen Concentration - - Weight 67.1 kg (148 lb) 06/03/2018 12:45 PM REGISTERED NURSE FETAL Height 162.6 cm (5' 4 ) 06/03/2018 12:45 PM REGISTERED NURSE FETAL Body Mass Index 25.4 06/03/2018 12:45 PM REGISTERED NURSE FETAL Functional Status Functional Status Response Date of Assess ment Is person deaf or have serious hearing difficult y? No 07/26/2014 Is person blind or have serious difficulty seein g? No 07/26/2014 Does person have serious dif ficulty walking/climbing stairs? No 07/26/2014 Does person have difficulty dressing/bathing? No 07/26/2014 Does person have difficulty doing errands alone? No 07/26/2014 Cognitive Status Response Date of Assessm ent Does person have difficulty concentrating/remembering/making decisions? No 07/26/2014 Plan of Treatment Not on file Procedures Procedure Name Priority Date/Time Associated Diagnosis [...] Chu MD (Doctor), Makenzie Green ? NANETTE Rodriguez Referring MD: ?Jason Hilton MD (Referring MD) [...] without mention of complication CPT copyright 2013 [employer] [place] [employer]. All rights reserved. The codes documented in this report are preliminary and upon profile trimmer review may be revised to meet current compliance requirements. ___ Yolanda Chu MD 07/26/2014 8:28 AM This report has been signed electronically. 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
--- OUTSIDE RECORDS SUMMARY | 2024-06-09 16:57 | XMS_ITS | Patient Health Summary ---
Author Organization [facility] Address [address] [place] [address] Care Team Providers Care Felt Machine Mechanic Name Role Phone Jason Hilton MD Primary Care Provider [phone] Note from [facility],non-owned Affiliates and Associated Physician Practices is amultiple site organization consisting of ambulatory clinics and hospital sitesin [place], [place], [place]. This disclosure is being madepursuant to the Care Everywhere program and may not contain all information available regarding this patient. Last updated 18.[facility] Allergies * Sulfa Drugs(Itching,Nausea and/or Vomiting) * Azithromycin(Nausea and/or Vomiting) Medications * Be aware that medications may not be up to date on this document. Alwaysverify current medications with the patient. * norethindrone-ethinyl estradiol (LOESTRIN 1.5/30, 21,) 1.5-30 MG-MCG tablet Take 1 Tab by mouth once daily. * montelukast (SINGULAIR) 10 MG tablet Take 10 mg by mouth at bedtime. * escitalopram (LEXAPRO) 5 MG tablet Take 5 mg by mouth once daily * HYDROXYZINE HCL PO * boric acid 600 mg capsule(Started 06/03/2018) Insert 1 capsule into the vagina at bedtime * hydrOXYzine hcl (ATARAX) 10 MG tablet(Started 06/30/2019) Take 1 tablet by mouth at bedtime Please make an appt for future refills Active Problems Problem Noted Date Diagnosed Date [...] Comments Blood Pressure 112/70 06/03/2018 12:45 PM HOOD FITTER Pulse 94 06/29/2017 3:39 PM HOOD FITTER Temperature 37 ??C (98.6 ??F) 06/29/2017 3:39 PM HOOD FITTER Respiratory Rate 16 06/29/2017 3:39 PM HOOD FITTER Oxygen Saturation 97% 06/29/2017 3:39 PM HOOD FITTER Inhaled Oxygen Concentration - - Weight 67.1 kg (148 lb) 06/03/2018 12:45 PM HOOD FITTER Height 162.6 cm (5' 4 ) 06/03/2018 12:45 PM HOOD FITTER Body Mass Index 25.4 06/03/2018 12:45 PM HOOD FITTER Procedures * LAB HISTORICAL RESULTS-ONBASE(Performed 02/10/2015) * LAB HISTORICAL RESULTS-ONBASE(Performed 02/09/2015) * CULTURE URINE(Performed 02/08/2015) * URINALYSIS - POINT OF CARE (AMB) [facility](Performed 02/08/2015) * COLONOSCOPY SCREEN(Performed 07/26/2014) Performed for Family history of malignant neoplasm of gastrointestinal tract * ENDOSCOPY, COLON, SCREENING(Performed 07/26/2014) * HCG URINE QUALITATIVE - POINT OF CARE(Performed 07/26/2014) * PH FLUID - POCT (AMB) [facility](Performed 03/08/2014) * CULTURE URINE COMPREHENSIVE(Performed 08/07/2013) * URINALYSIS - POINT OF CARE (AMB) [facility](Performed 08/04/2013) * FUNGUS FRED - POINT OF CARE (AMB) [facility](Performed 08/04/2013) * PH FLUID - POCT (AMB) [facility](Performed 08/04/2013) * WET PREP - POINT OF CARE (AMB) [facility](Performed 08/04/2013) * URINALYSIS - POINT OF CARE (AMB) [facility](Performed 03/19/2013) * LAB HISTORICAL RESULTS-ONBASE(Performed 10/14/2012) * CARDIAC RHYTHM STRIP ORDER(Performed 06/19/2012) * CYSTOSCOPY WITH HYDRODISTENSION BLADDER(Performed 06/13/2012) Performed for Urinary frequency * HCG URINE QUALITATIVE - POINT OF CARE(Performed 06/13/2012) * CULTURE FUNGUS OTHER+FUNGUS SMEAR(Performed 02/22/2012) * CULTURE FUNGUS OTHER+FUNGUS SMEAR(Performed 12/27/2010) * PH FLUID - POCT (AMB) [facility](Performed 05/06/1998) * WET PREP - POINT OF CARE (AMB) [facility](Performed 05/06/1998) * FUNGUS FRED - POINT OF CARE (AMB) [facility](Performed 05/06/1998) * FUNGUS FRED - POINT OF CARE (AMB) [facility](Performed 05/06/1998) * PH FLUID - POCT (AMB) [facility](Performed 05/06/1998) * WET PREP - POINT OF CARE (AMB) [facility](Performed 05/06/1998) * PH FLUID - POCT (AMB) [facility](Performed 05/06/1998) Results * LAB HISTORICAL RESULTS-ONBASE (02/10/2015) Only the most recent of3 resultswithin the time period is included. 02/10/2015 Narrative [facility] - 02/11/2015 12:55 PM CDT Historical Provider LAB - CHEMISTRY O RDERABLES Performing Organization Address City/State/[facility] Co de Phone Number [facility] [address] * CULTURE URINE (02/08/2015 10:15 AM CDT) Urine Culture Routine SEE NOTE [facility] ([facility]) Comment: ??CULTURE, URINE, ROUTINE ?MICRO NUMBER: ?[id number] ??TEST STATUS: ? FINAL ??SPECIMEN SOURCE: ?? URINE ??SPECIMEN QUALITY: ??ADEQUATE ??RESULT: ?No Growth Test Performed at: [facility] ??[id number] MIRANDA ALVAREZ MD Urine specimen (specimen) URINE SPECIMEN OBTAINED BY CLEAN CATCH PROCEDURE / Unknown 02/08/2015 10:15 AM CDT 02/09/2015 4:14 AM CDT Narrative [facility] ([facility]) - 02/09/2015 11:00 PM CDT Specimen Type->Urine Issa Naik MD LAB - MICROBIOLOGY O RDERABLES [facility] ([facility]) * URINALYSIS - POINT OF CARE (AMB) [facility] (02/08/2015) Only the most recent of3 resultswithin the time period is included. Glucose UA N [facility] Bilirubin UA POCT N [facility] Ketones UA POCT POSITIVE [facility] Specific [place] UA 1.015 [facility] Blood Urine POCT N [facility] pH UA 6 [facility] Protein UA N [facility] Urobilinogen UA N [facility] Nitrite UA N [facility] WBC UA N [facility] Urine specimen (specimen) 02/08/2015 Issa Naik MD LAB - POINT OF CARE ORDERABLES Performing Organization Address [facility]/ZIP Co de Phone Number [facility] * ENDOSCOPY, COLON, SCREENING (07/26/2014 7:37 AM [...] without mention of complication CPT copyright 2013 [employer]. All rights reserved. The codes documented in this report are preliminary and upon wrapper hands sprayer review may be revised to meet current compliance requirements. ___ Yolanda Chu MD 07/26/2014 8:28 AM This report has been signed electronically. Number of Addenda: 0 Note Initiated On: 07/26/2014 7:37 AM [facility] ENDOSCOPY 07/26/2014 7:37 AM CDT Yolanda Wiley MD GI PROCEDURE ORDE RABLES Performing Organization Address [facility] Co de Phone Number [facility] ENDOSCOPY * HCG URINE QUALITATIVE - POINT OF CARE (IP) (07/26/2014 6:46 AM CDT) Only the most recent of2 resultswithin the time period is included. HCG Qual Urine Negative Negative [facility] POCT TESTING QC Verified Yes Yes [facility] POC T TESTING Urine specimen (specimen) URINE / Unknown 07/26/2014 6:46 AM CDT Yolanda Wiley MD LAB - POINT OF CA RE ORDERABLES Performing Organization Address [facility] [[email or web address]] de Phone Number [facility] POCT TESTING [address] [place] [address] * PH FLUID - POCT (AMB) U (03/08/2014) Only the most recent of5 resultswithin the time period is included. pH Vaginal 4.0-4.5 [facility] Vaginal swab (specimen) 03/08/2014 Liz Redman APRN-DEPUTY DIRECTOR OF FINANCE LAB - POINT OF CARE ORDERABLES Performing Organization Address [facility] [[email or web address] de Phone Number [facility] * CULTURE URINE COMPREHENSIVE (08/07/2013 2:00 PM CDT) Culture SEE NOTE [facility] ([facility]) Comment: ??CULTURE, URINE, SPECIAL ?MICRO NUMBER: ?[id number] ??TEST STATUS: ? FINAL ??SPECIMEN SOURCE: ?? URINE ??SPECIMEN QUALITY: ??ADEQUATE ??RESULT: ?No Growth NO COLLECTION DATE RECEIVED. WE HAVE USED THE DATE THE SPECIMEN WAS RECEIVED BY THIS LABORATORY THE COLLECTION DATE. IF THIS IS INCORRECT, PLEASE CONTACT CLIENT SERVICES. PHONE NUMBER: [phone] Test Performed at: [facility] ??[id number] MIRANDA ALVAREZ MD Urine specimen (specimen) 08/07/2013 2:00 PM CDT 08/05/2013 3:25 AM CDT Liz Redman APRN-DEPUTY DIRECTOR OF FINANCE LAB - MICRO BIOLOGY ORDERABLES [facility] ([facility]) * WET PREP - POINT OF CARE (AMB) [facility] (08/04/2013) Only the most recent of3 resultswithin the time period is included. pH Wet Prep 4.5 [facility] Yeast Wet Prep neg [facility] Trichomonas Wet Prep neg [facility] Bacteria Wet Prep neg [facility] Whiff Test neg [facility] 08/04/2013 Liz Redman APRN-DEPUTY DIRECTOR OF FINANCE LAB - POINT OF CARE ORDERABLES Performing Organization Address City/[facility]/ZIP Co de Phone Number [facility] * FUNGUS FRED - POINT OF CARE (AMB) U (08/04/2013) Only the most recent of3 resultswithin the time period is included. FRED Prep neg [facility] Fluid specimen (specimen) 08/04/2013 Liz Redman APRN-DEPUTY DIRECTOR OF FINANCE LAB - POINT OF CARE ORDERABLES [facility] * CARDIAC RHYTHM STRIP ORDER (06/19/2012 1:11 PM HOOD FITTER) Narrative 06/19/2012 1:11 PM HOOD FITTER Procedure Note Document, Scanned - 06/19/2012 1:11 PM CST Scanned Document CARDIAC SERVICES ORD ERABLES * CULTURE FUNGUS OTHER+FUNGUS SMEAR (02/22/2012 1:02 PM CDT) Only the most recent of2 resultswithin the time period is included. Smear SEE NOTE [facility] ([facility]) Comment: ??CULTURE, FUNGUS W/SMEAR NOT HAIR, SKIN, BLOOD ?MICRO NUMBER: ?[id number] ??TEST STATUS: ? FINAL ??SPECIMEN SOURCE: ?? VAGINA ??SPECIMEN QUALITY: ??ADEQUATE ??SMEAR: ? No fungal elements seen. ??RESULT: ?No fungal growth at 4 Weeks REPORT COMMENT: CHECK FOR GLABRATA YEAST; SPECIMEN TYPE->UROGENITAL Test Performed at: [facility] [address] ??[id number] LEO TOLENTINO DO [facility] 02/22/2012 1:02 PM CDT 02/22/2012 1:03 PM CDT Narrative [facility] ([facility]) - 03/24/2012 7:00 AM HOOD FITTER Check for glabrata yeast Specimen Type->Urogenital Liz Redman STREET ENGINEER-DEPUTY DIRECTOR OF FINANCE LAB - MICRO BIOLOGY ORDERABLES [facility] ([facility]) Care Teams Felt Machine Mechanic Relationship Specialty Start Date End Date Jason Hilton MD [address] [place], [place] [id number] PCP - General Internal Medicine 06/13/12
--- OUTSIDE RECORDS SUMMARY | 2024-06-09 16:57 | XMS_ITS | Encounter Summary ---
Author Organization [facility] Address [address] [place] [address] Care Team Providers Care Computerized Machine Fabric Cutter Name Role Phone Jason Hilton MD Primary Care Provider [phone] Reason for Visit * Reason Onset Date Comments Refill Request 05/22/2018 Encounter Details Date Type Department Care Team (Late st Contact Info) Description 05/22/2018 Telephone [facility] [address] [place] [address] Issa Naik MD [address] [place], [place] [id number] Refill Request Social History Tobacco Use Types Packs/Day Years Used Date Smoking Tobacco: Never Smokeless Tobacco: Never Alcohol Use Standard Drinks/Week Comments No 0 (1 standard drink = 0.6 oz pur e alcohol) Sex and Gender Information Value Date Recorded Sex Assigned at Not on file Gender Identity Not on file Sexual Orientation Not on file documented as of this encounter Functional Status Functional Status Response Date of [...] person have difficulty concentrating/remembering/making decisions? No 07/26/2014 documented as of this encounter Miscellaneous Notes * Telephone Encounter - Immanuel Coombs RN - 05/22/2018 11:15 AM CST LM on a re: This is Dr Naik's office and we got your request for a refill. Since It's been over a year since we've seen you, we had to deny this bc we need to update your allergies and med list.I see you have an upcoming appt on 06/[address] Naik can refill at this appt. NOTE: this med has been denied in March and again on 05/19. Each time, refused w/ msg for pt to make appt. ( per progress note, She needs reassessment of memory issues and medication use. ) She made an appt this morning. P SHED SUPERVISOR * Telephone Encounter - Lory Caldwell - 05/22/2018 10:51 AM CST Pt call to see if could refill a prescription for hydrozine. Pt has appt schedule with for 06-03-18. Pt request the prescription be sent to [facility] pharmacy at [phone] P SHED SUPERVISOR documented in this encounter Plan of Treatment Not on file documented as of this encounter Visit Diagnoses Not on filedocumented in this encounter Care Teams Computerized Machine Fabric Cutter Relationship Specialty Start Date End Date Jason Hilton MD [address] [place] [address] PCP - General Internal Medicine 06/13/12 documented as of this encounter
== END 2024-06-09 16:48 | disposition home or self-care (01) ==
LOC: CHSLAB 16:54
PROVIDERS: PCP Internal Medicine; Visit Provider Specialist
DX: D22.5 Melanocytic nevi of trunk (principal)
CPT/HCPCS: 88305